=== PATIENT | female | born 1995 | race Hispanic/Latino ===

== ENCOUNTER 2022-10-19 18:57 | Emergency (ER) | payer SELFPAY ==
[~2022-10-19 18:57] MED LIST: CORTISPORIN OTI10 ML AD; FIORICET PO; NO HOME MEDS; ZITHROMAX250 MG OR
[2022-10-19 20:04] VITALS: BP 115/89
[2022-10-19 20:05] LABS: URINE BILIRUBIN - DIPSTICK NEGATIVE (NEGATIVE); URINE BLOOD DIPSTICK SMALL (NEGATIVE); URINE COLOR YELLOW; URINE GLUCOSE - DIPSTICK NEGATIVE (NEGATIVE); URINE KETONE NEGATIVE (NEGATIVE); URINE LEUK ESTERASE NEGATIVE (NEGATIVE); URINE PH 7.5 (4.5-8.0); URINE PROTEIN - DIPSTICK TRACE mg/dL (NEG-TRACE)
[2022-10-19 20:06] LABS: URINE NITRITE - DIPSTICK NEGATIVE (Negative)
[2022-10-19 20:30] VITALS: BP 115/75
[2022-10-19 20:50] LABS: BASO% 0.1 % (0-3); EOS% 0.1 % (0-8); HEMATOCRIT 32.9 % (37.0-47.0); HEMOGLOBIN 10.6 g/dl (12.0-16.0); IMMATURE GRANULOCYTES 0.1 % (0.0-5.0); LYMPH% 4.3 % (15-41); MEAN CORPUSCULAR HGB 26.4 pG CALC (26.0-32.0); MEAN CORPUSCULAR HGB CONC 32.2 g/dL CAL (32.0-36.0); MONO% 4.6 % (2-13); NEUT# 13.9 thou/uL (2.00-7.15); NEUT% 90.8 % (42-76); RED BLOOD COUNT 4.01 mill/uL (4.20-5.60); RED CELL DISTRI WIDTH 14.7 % (11.5-15.5)
[2022-10-19 21:00] LABS: ALBUMIN 4.1 g/dL (3.2-5.0); ALKALINE PHOSPHATASE 79 u/l (38-126); ANION GAP 10 (6-22 (CALC)); BILIRUBIN, TOTAL 0.5 mg/dL (0.0-1.4); BUN 9 mg/dL (7-17); BUN/CREATININE RATIO 13 (12-20 (CALC)); CARBON DIOXIDE 25 mmol/l (22-30); CHLORIDE 105 mmol/l (95-108); CREATININE 0.7 mg/dL (0.5-1.0); GFR FOR AFR.AMER. > 60 ML/MIN (>=60 (CALC)); GFR OTHER RACES > 60 ML/MIN (>=60 (CALC)); LIPASE 77 u/l (23-300); SGOT/AST 25 u/l (14-36); SODIUM 136 mmol/l (137-146); TOTAL PROTEIN 7.4 g/dL (6.3-8.2)
[2022-10-19 21:30] VITALS: BP 105/72
[2022-10-19 22:00] VITALS: BP 102/62
[2022-10-19 22:30] VITALS: BP 100/61
[2022-10-19] MEDS ORDERED: TYLENOL # 31 TA1 PO (22:39)
[2022-10-19] MEDS ORDERED: LEVAQUIN750 M1 PO (22:39)
[2022-10-19 23:00] VITALS: BP 95/58
[2022-10-20 00:26] VITALS: BP 119/46
[2022-10-20 01:00] VITALS: BP 104/36
[2022-10-20 01:19] VITALS: BP 107/38
[2022-10-20 01:30] VITALS: BP 117/58
[2022-10-20 05:03] VITALS: BP 143/57
== END 2022-10-19 23:07 | disposition home or self-care (01) | DRG 392 ==
LOC: ED 18:57
PROVIDERS: Family Medicine
DX: K57.92 Diverticulitis of intestine, part unspecified, without perforation or abscess without bleeding (principal)
CPT/HCPCS: Q9967